=== PATIENT | female | born 1940 | race Caucasian/White ===

== ENCOUNTER 2018-05-08 21:22 | Outpatient (REF) | payer OTHER, MEDICARE, SELFPAY | END 2018-05-08 21:42 | LOC: NCHCN 21:22 | PROVIDERS: PCP Nurse Practitioner Family; Visit Provider Family Medicine | DX: R10.9 Unspecified abdominal pain (principal) | CPT/HCPCS: 87086 ==

== ENCOUNTER 2020-04-06 15:27 | Outpatient (CLI) | payer MEDICARE, SELFPAY ==
--- NOTE | 2020-04-06 12:00 | DI.RAD_ITS ---
EXAM: XR FINGER LT LITTLE CLINICAL HISTORY: pain TECHNIQUE: COMPARISON: No exams were available for comparison FINDINGS: Two views were obtained. There is a flexion deformity at the PIP joint with question subluxation of the middle phalanx anteriorly from the proximal phalanx. There are mild degenerative changes consist ent with the patient's age. No other abnormality seen. IMPRESSION: RADIATION DOSE DELIVERED: Total DLP
== END 2020-04-06 15:47 ==
PROVIDERS: PCP Family Medicine; Referring Provider Nurse Practitioner Family; Visit Provider Orthopaedic Surgery
DX: M19.042 Primary osteoarthritis, left hand (principal); M19.041 Primary osteoarthritis, right hand
CPT/HCPCS: 99213; 73140

== ENCOUNTER 2020-04-28 02:24 | Outpatient (CLI) | payer MEDICARE, SELFPAY ==
[2020-04-29 21:36] LABS: SARS-CoV-2 RNA Source Nasal/Nares
[2020-04-29 21:38] LABS: SARS-CoV-2 RNA Not Detected (NotDetected)
== END 2020-04-28 02:44 ==
PROVIDERS: PCP Family Medicine; Visit Provider Orthopaedic Surgery
DX: Z01.818 Encounter for other preprocedural examination (principal); M19.042 Primary osteoarthritis, left hand
CPT/HCPCS: U0003

== ENCOUNTER 2020-05-02 11:27 | Day surgery (SDC) | payer MEDICARE, SELFPAY ==
[2020-05-02 11:44] VITALS: BP 133/81; PULSE 83; RESP 18; TEMP 36.4; O2SAT 94
--- NOTE | 2020-05-02 13:00 | DI.RAD_ITS ---
EXAM: XR HAND LT LIMITED CLINICAL HISTORY: osteoarthritis. TECHNIQUE: 2D and realtime digital imaging was performed. COMPARISON: CR XR FINGER LT LITTLE from 04/06/2020 FINDINGS: Fluoroscopy was provided in the OR for Dr. Rosen. Hard copy images show placement of a screw across the proximal interphalangeal joint of the 5th finger for fusion. Please see procedure note for details. Fluoro Time: 3.4 seconds RADIATION DOSE DELIVERED:
[2020-05-02] MEDS: Lactated Ringers 1,000 ML 80 ML IV (13:09)
[2020-05-02] MEDS: ceFAZolin 1 GM/50 ML BAG IVPB (14:02)
[2020-05-02] MEDS: EPINEPHrine 30 MG/30 ML VIAL (14:57)
[2020-05-02] MEDS: Bupivacaine 0.5% Pres-Free 30 ML VIAL (14:57)
--- NOTE | 2020-05-02 15:21 | W.PM.DSUDISC ---
Discharge Plan Disposition Patient Disposition: HOME Condition: Good Discharge Details Reason For Visit: PIPJ FUSION LLF Attending Provider: Gabino Rosen Primary Care Provider: Lidia Luna Home Meds and New Rx's Prescriptions: New hydrocodone-acetaminophen 5-325 mg tablet 1 tab PO Q6H PRN (Reason: pain) Qty: 10 RF: 0 Continued magnesium 30 mg tablet 30 mg PO DAILY RF: 0 cholecalciferol (vitamin D3) [Vitamin D3] 1,000 UNIT capsule 600 unit PO DAILY RF: 0 Discharge Instructions Additional Instructions: TRY TO ELEVATE L HAND ABOVE HEART LEVEL MUCH POSSIBLE FOR NEXT 24-48 hrs TO DECREASE SWELLING. KEEP SPLINT AND DRESSINGS DRY AND IN PLACE UNTIL RETURN. COVER WITH PLASTIC BAG TO SHOWER. FOLLOW UP WITH IN 2 WEEKS. TAKE TYLENOL OR IBUPROFEN FOR MILD PAIN. TAKE HYDROCODONE FOR BREAKTHRU PAIN, IF NEEDED. Referrals: Gabino Rosen MD [ [facility] STAFF PHYSICIAN] - (F/U IN 2 WEEKS.) Equipment/Supplies: Splint Activity:: Activity as Tolerated Remove Dressings/Wound Care:: Do Not Remove Shower/Bathe:: Cover Diet:: As Tolerated Discharge Orders Discharge Orders: Discharge Order (Routine); Ordered 05/02/20 Ordered By: Gabino Rosen
[2020-05-02 15:50] VITALS: BP 161/47; PULSE 64; RESP 18; TEMP 36.2; O2SAT 98
--- NOTE | 2020-05-04 14:52 | ROE_ITS ---
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 The contracture is not painful. However, the fixed flexion of the PIP joint causes a little finger to get in the way of use of her left hand for all sorts of gripping activities. It was felt that she would greatly benefit by having the PIP joint fused in a more extended position so it was not stuck in the palm and interfering with use of her hand. She felt that the functional impairment of her left hand by the contracted little finger was significant. I recommended PIP fusion in more extension to correct deformity and improve function of her left hand. Risk and complication procedure explained patient detail preop. Procedure Description: Patient taken the operating room on 05/02/2020 play supine operating table. IV regional anesthetic was administered to the left upper extremity. She was given some IV sedation in addition. The left hand wrist and forearm were prepped and draped free in usual sterile fashion. Longitudinal incision was made over the midline dorsum of the left little finger beginning over the middle phalanx and extending proximally almost to the base of the proximal phalanx. Incision was carried through the skin into the center of the extensor tendon and through the PIP joint capsule. Sharp dissection was used to circumferentially free up any soft tissue constraints on the PIP joint. Using a motorized bur I resected the articular cartilage on the distal portion of the proximal phalanx down to cancellous bone. I then used the bur to resect the articular cartilage from the base of the middle phalanx. It was still difficult to get adequate extension due to the prolonged contracture of the finger. I then shorten the proximal phalanx a small amount with a motorized bur so that I could approximate the middle phalanx against the proximal phalanx with mormon of extension of the joint. Once I was able to do that I then passed a small guidepin from proximal to distal across the PIP joint through the proximal phalanx and into the middle phalanx. Good position of the pin was confirmed on AP and lateral views. I use a cannulated small drill to drill over the guidepin and then appropriate length Accu tract compressing screw was then placed over the guidepin. This compressed the cancellous bony surfaces quite nicely. The finger was now corrected to about -20 degrees of extension. Rotation was anatomic. The wounds are irrigated with saline solution. Digital block to the little finger was administered at the level of metacarpal neck using 0.5 some Marcaine with epinephrine solution. The extensor tendon and joint capsule were approximated interrupted 3-0 Vicryl sutures. Skin edges approximated interrupted 4 nylon sutures. Wounds dressed with Xeroform gauze followed by tube gauze. I then immobilized the finger and wrist with a short arm ulnar gutter splint which extended to the tips of the little ring fingers. This took the stress off the fixation of the PIP joint. Patient is IV regional anesthesia was reversed all complications. She was discharged to recovery room in good condition. Intraoperative C-arm images confirmed good position of the PIP joint and the transfixing cannulated screw. Patient was discharged home from day surgery unit and fully recovered from her IV regional anesthesia. She is given instructions to keep her dressings and splint dry and intact until she follows up with Dr. Rosen in 2 weeks. She should take Tylenol or ibuprofen for mild pain. She is given a prescription for breakthrough pain of hydrocodone with APAP 5/325 1 tab every 6 hours if needed.
== END 2020-05-02 16:45 | disposition home or self-care (01) ==
PROVIDERS: PCP Family Medicine; Visit Provider Orthopaedic Surgery
PROC: (CPT 26860; principal; 2020-05-02 13:15)
DX: M24.542 Contracture, left hand (principal)
CPT/HCPCS: 26860; 73120; J0690; J1100; J1885; J2001; J2405

== ENCOUNTER → 2020-05-10 11:28 | Outpatient (BNVA) | payer MEDICARE, SELFPAY | PROVIDERS: PCP Family Medicine; Referring Provider Family Medicine; Visit Provider Orthopaedic Surgery | DX: Z47.89 Encounter for other orthopedic aftercare (principal); M19.042 Primary osteoarthritis, left hand ==

== ENCOUNTER 2020-05-17 11:58 | Outpatient (CLI) | payer MEDICARE, SELFPAY ==
--- NOTE | 2020-05-17 11:21 | DI.RAD_ITS ---
EXAM: XR FINGER LT LITTLE CLINICAL HISTORY: f/u surgery TECHNIQUE: COMPARISON: CR XR FINGER LT LITTLE from 04/06/2020 XR HAND LT LIMITED from 05/02/2020 FINDINGS: Three views were obtained and show fusion at the PIP joint the little finger fixation screw in place. Alignment appears unchanged comparison with intraoperative films May 02. IMPRESSION: RADIATION DOSE DELIVERED: Total DLP Total DLP
== END 2020-05-17 12:18 ==
PROVIDERS: PCP Family Medicine; Referring Provider Family Medicine; Visit Provider Orthopaedic Surgery
DX: M19.042 Primary osteoarthritis, left hand (principal); Z98.1 Arthrodesis status; Z47.89 Encounter for other orthopedic aftercare
CPT/HCPCS: 73140

== ENCOUNTER 2020-06-14 13:26 | Outpatient (CLI) | payer MEDICARE, SELFPAY ==
--- NOTE | 2020-06-14 11:35 | DI.RAD_ITS ---
EXAM: XR FINGER LT LITTLE CLINICAL HISTORY: s/p PIP fusion. TECHNIQUE: 2D digital imaging was performed. COMPARISON: CR XR FINGER LT LITTLE from 05/17/2020 FINDINGS: BONES: There are stable post operative changes present. No fracture or dislocation. JOINTS: The joint spaces are well maintained. No joint effusion is present. SOFT TISSUE: Normal. IMPRESSION: Stable postoperative changes. DATA REPOSITORY: RADIATION DOSE DELIVERED:
== END 2020-06-14 13:46 ==
PROVIDERS: PCP Family Medicine; Referring Provider Family Medicine; Visit Provider Physician Assistant
DX: Z98.1 Arthrodesis status (principal)
CPT/HCPCS: 73140

== ENCOUNTER → 2023-05-13 14:42 | Outpatient (CLI) | payer MEDICARE, SELFPAY ==
--- NOTE | 2023-05-13 | DI.RAD_ITS ---
Exam(s) XR KNEE RT 3V AP,LAT,DYLAN EXAM: XR KNEE RT 3V AP,LAT,DYLAN CLINICAL HISTORY: EFFUSION KNEE M25.469 PROGRESSIVE EFFUSION W/OUT TRAUMA RT KNEE. TECHNIQUE: 2D digital imaging was performed. Three views. COMPARISON: No exams were available for comparison FINDINGS: BONES: No acute fracture is present. No bony destructive lesion is seen. JOINTS: The knee is normally aligned. A small joint effusion is seen. The joint spaces are maintain ed. Minimal periarticular spurring. SOFT TISSUE: Normal. IMPRESSION: Small joint effusion. Mild degenerative changes. DATA REPOSITORY: RADIATION DOSE DELIVERED:
== END ==
PROVIDERS: PCP Family Medicine; Visit Provider Nurse Practitioner Family
DX: M25.462 Effusion, left knee (principal)
CPT/HCPCS: 73562

== ENCOUNTER 2023-05-13 21:23 | Outpatient (REF) | payer MEDICARE, SELFPAY ==
[2023-05-15 11:15] LABS: Lyme Ab w Rflx to Lyme Confirm Negative (Negative)
== END 2023-05-13 21:24 | disposition home or self-care (01) ==
LOC: LBN 21:23
PROVIDERS: PCP Family Medicine; Visit Provider Nurse Practitioner Family
DX: M25.461 Effusion, right knee (principal)
CPT/HCPCS: 86618

== ENCOUNTER 2024-05-15 00:32 | Outpatient (CLI) | payer MEDICARE, SELFPAY ==
--- NOTE | 2024-05-15 10:05 | DI.RAD_ITS ---
Exam(s) XR CHEST 2V PA LATERAL EXAM: XR CHEST 2V PA LATERAL CLINICAL HISTORY: CHELSEAI,J06.9,ACUTE TECHNIQUE: 2D digital imaging was performed. Two views. COMPARISON: No exams were available for comparison FINDINGS: HEART: Normal size. Aorta: Not dilated. PULMONARY VASCULATURE: Normal. MEDIASTINUM: Unremarkable. LUNGS: Minimal linear scarring in the lower lobes, otherwise clear. PLEURAL SPACE: No pleural effusion or pneumothorax. BONE:Unremarkable for age. SOFT TISSUES: Unremarkable. IMPRESSION: No acute abnormality. DATA REPOSITORY: RADIATION DOSE DELIVERED:
== END 2024-05-15 00:52 ==
PROVIDERS: PCP Family Medicine; Visit Provider Physician Assistant Medical
DX: J06.9 Acute upper respiratory infection, unspecified (principal)
CPT/HCPCS: 71046